=== PATIENT | female | born 1980 | race Caucasian/White ===

== ENCOUNTER 2018-10-29 11:08 | Inpatient (IN) | payer BC, MEDICAID ==
[2018-10-29] VITALS (10 sets, daily range): BP systolic 94–136
[~2018-10-29] VITALS: Ht 157.5 cm; Wt 65.3 kg
[2018-10-29] MEDS ORDERED: NACL 0.9% 1,000 ML IV ONE (11:14)
[2018-10-29] MEDS ORDERED: cefTRIAXone 1 GM IVPB PREMIX 50 ML IV ONE (11:15)
[2018-10-29] MEDS ORDERED: NS 1000 ML IV.SOLN IV ONE (11:15)
[2018-10-29] MEDS ORDERED: IBUPROFEN 800 MG TABLET PO ONE (11:30)
[2018-10-29] MEDS ORDERED: ACETAMINOPHEN 120 MG SUPP.RECT RC ONE (11:30)
[2018-10-29 12:25] LABS: BASOPHILS % (AUTO) 0.1 % (0.0-2.0); EOSINOPHILS % (AUTO) 0.2 % (0.0-4.0); HEMOGLOBIN 10.5 g/dL (12.0-16.0); LYMPHOCYTES % (AUTO) 9.8 % (20.5-51.5); MEAN CORPUSCULAR HEMOGLOBIN 28 pg (27-31); MEAN CORPUSCULAR HGB CONC 33 % (32-36); MEAN CORPUSCULAR VOLUME 85 fL (79.0-98.0); MONOCYTES # (AUTO) 0.6 K/uL (0.0-1.0); MONOCYTES % (AUTO) 5.5 % (1.7-9.3); NEUTROPHILS % (AUTO) 84.4 % (40.0-70.0); PLATELET COUNT (AUTO) 424 K/uL (130-430); RED BLOOD CELL COUNT(AUTO) 3.78 MIL/uL (4.2-6.2); RED CELL DISTRIBUTION WIDTH 15.3 % (9.0-15.0); WHITE BLOOD COUNT (AUTO) 10.7 K/uL (4.8-10.8)
[2018-10-29 12:29] LABS: CALCIUM 9.7 mg/dL (8.4-11.0); CREATININE 0.57 mg/dL (0.55-1.30); POTASSIUM 3.5 mmol/L (3.5-5.1)
[2018-10-29 12:34] LABS: ALBUMIN 2.6 g/dL (3.4-4.8); TOTAL BILIRUBIN 0.3 mg/dL (0.0-1.0)
[2018-10-29 12:38] LABS: PROTHROMBIN TIME 10.7 SECS (9.5-12.5)
[2018-10-29 12:49] LABS: BILIRUBIN,URINE NEGATIVE (NEGATIVE); BLOOD, URINE 3+ (NEGATIVE); CLARITY/URINE HAZY (CLEAR); COLOR,URINE YELLOW (YELLOW); GLUCOSE,URINE NEGATIVE (NEGATIVE); KETONES,URINE NEGATIVE (NEGATIVE); LEUKOCYTE ESTERASE ,URINE 3+ (NEGATIVE); NITRITE, URINE NEGATIVE (NEGATIVE); PROTEIN URINE 2+ (NEGATIVE); UROBILINOGEN,URINE 0.2 (0.2-1.0)
[2018-10-29 12:56] LABS: BACTERIA,URINE MODERATE /HPF (None Seen); MUCUS,URINE 1+ /LPF (None Seen); RBC,URINE 80-100 /HPF (0-3); WBC,URINE 20-50 /HPF (0-3)
[2018-10-29] MEDS ORDERED: LOVI40 SQ (13:33)
[2018-10-29] MEDS ORDERED: LACO200T2 GT (13:33)
[2018-10-29] MEDS ORDERED: CHLO237L3 TP (13:33)
[2018-10-29] MEDS ORDERED: TOPI200T GT (13:33)
[2018-10-29] MEDS ORDERED: LIP20 GT (13:33)
[2018-10-29] MEDS ORDERED: ACET325T53 GT ×2 (13:33)
[2018-10-29] MEDS ORDERED: PEDI1TAB28 GT (13:33)
[2018-10-29] MEDS ORDERED: PROP60CA6 GT (13:33)
[2018-10-29] MEDS ORDERED: [UNRECOGNIZED DRUG - OTHER] GT (13:33)
[2018-10-29] MEDS ORDERED: LANS15CA14 GT (13:33)
[2018-10-29] MEDS ORDERED: LACT10SO7 PO (13:33)
[2018-10-29] MEDS ORDERED: FOLI-43 GT (13:33)
[2018-10-29] MEDS ORDERED: ASCO500T20 GT (13:33)
[2018-10-29] MEDS ORDERED: MODA200T22 GT (13:33)
[2018-10-29] MEDS ORDERED: LEVE500T9 GT (13:33)
[2018-10-29] MEDS ORDERED: LevALBUTEROL HCL 1.25 MG/0.5 ML *CONC.* VIAL.NEB (XOPENEX CONC.) INH PRN (17:00)
[2018-10-29 17:15] LABS: PROTHROMBIN TIME 10.3 SECS (9.5-12.5)
[2018-10-29] MEDS ORDERED: LevALBUTEROL HCL 1.25 MG/0.5 ML *CONC.* VIAL.NEB (XOPENEX CONC.) INH ONE (17:15)
[2018-10-29] MEDS ORDERED: ACETAMINOPHEN 650 MG/20.3 ML UDC GT PRN ×2 (17:15)
[2018-10-29] MEDS ORDERED: CEFEPIME 1 GM in D5W 50 ML IV ONE (18:00)
[2018-10-29] MEDS: LevALBUTEROL HCL 1.25 MG/0.5 ML *CONC.* VIAL.NEB (XOPENEX CONC.) INH SCH (19:50)
[2018-10-29] MEDS ORDERED: NOREPINEPHRINE BITARTRATE 4 MG in D5W 246 ML IV PRN (20:30)
[2018-10-29] MEDS ORDERED: LORazepam 2 MG/ML VIAL IVP PRN (20:30)
[2018-10-29] MEDS: PROPRANOLOL HCL 10 MG TABLET (INDERAL) GT SCH (21:00)
[2018-10-29] MEDS: LACTULOSE 20 GM/30 ML UDC PO SCH (22:18)
[2018-10-29] MEDS: TOPIRAMATE 100 MG TABLET(Topamax) GT SCH (22:19)
[2018-10-29] MEDS: KCL 20 mEq in D5NS 1000 mL 1,000 ML IV SCH ×2 (22:19→23:40)
[2018-10-29] MEDS: ATORVASTATIN 20 MG TABLET GT SCH (22:19)
[2018-10-29] MEDS: LACOSAMIDE 100 MG TABLET GT SCH (22:19)
[2018-10-29] MEDS: CHLORHEXIDINE GLUCONATE 15 ML/DOSE, 480 ML MM SCH (22:20)
[2018-10-29] MEDS: levETIRAcetam 500 MG TABLET GT SCH (22:20)
[2018-10-29] MEDS: ENOXAPARIN SODIUM 60 MG/0.6 ML SYRINGE SQ SCH (22:22)
[2018-10-30] VITALS (24 sets, daily range): BP systolic 98–147
[2018-10-30] MEDS: LevALBUTEROL HCL 1.25 MG/0.5 ML *CONC.* VIAL.NEB (XOPENEX CONC.) INH SCH ×4 (01:09→19:56)
[2018-10-30] MEDS: KCL 20 mEq in D5NS 1000 mL 1,000 ML IV SCH (05:16)
[2018-10-30] MEDS: CEFEPIME 1 GM in D5W 50 ML IV SCH ×2 (05:18→17:50)
[2018-10-30] MEDS: LANSOPRAZOLE 30 MG CAPSULE.DR GT SCH (06:25)
[2018-10-30 06:42] LABS: BASOPHILS % (AUTO) 0.2 % (0.0-2.0); EOSINOPHILS # (AUTO) 0.2 K/uL (0.0-0.4); EOSINOPHILS % (AUTO) 1.9 % (0.0-4.0); HEMOGLOBIN 9.6 g/dL (12.0-16.0); LYMPHOCYTES # (AUTO) 1.8 K/uL (1.0-5.5); LYMPHOCYTES % (AUTO) 15.5 % (20.5-51.5); MEAN CORPUSCULAR HEMOGLOBIN 27 pg (27-31); MEAN CORPUSCULAR HGB CONC 32 % (32-36); MEAN CORPUSCULAR VOLUME 85 fL (79.0-98.0); MONOCYTES # (AUTO) 0.8 K/uL (0.0-1.0); MONOCYTES % (AUTO) 7.1 % (1.7-9.3); NEUTROPHILS % (AUTO) 75.3 % (40.0-70.0); PLATELET COUNT (AUTO) 349 K/uL (130-430); RED BLOOD CELL COUNT(AUTO) 3.52 MIL/uL (4.2-6.2); RED CELL DISTRIBUTION WIDTH 15.3 % (9.0-15.0); WHITE BLOOD COUNT (AUTO) 11.9 K/uL (4.8-10.8)
[2018-10-30 07:01] LABS: CALCIUM 8.9 mg/dL (8.4-11.0); CREATININE 0.37 mg/dL (0.55-1.30)
[2018-10-30] MEDS ORDERED: POTASSIUM CHLORIDE 20 MEQ/PKT PACKET PO ONE (10:30)
[2018-10-30] MEDS: LACTULOSE 20 GM/30 ML UDC PO SCH ×2 (10:32→20:14)
[2018-10-30] MEDS: levETIRAcetam 500 MG TABLET GT SCH ×2 (10:33→20:16)
[2018-10-30] MEDS: PROPRANOLOL HCL 10 MG TABLET (INDERAL) GT SCH ×2 (10:33→20:15)
[2018-10-30] MEDS: FOLIC ACID 1 MG TABLET GT SCH (10:33)
[2018-10-30] MEDS: TOPIRAMATE 100 MG TABLET(Topamax) GT SCH ×2 (10:34→20:14)
[2018-10-30] MEDS: ASCORBIC ACID 500 MG TABLET GT SCH (10:34)
[2018-10-30] MEDS: MODAFINIL 100 MG TABLET (PROVIGIL) GT SCH (10:34)
[2018-10-30] MEDS: LACOSAMIDE 100 MG TABLET GT SCH ×2 (10:34→20:14)
[2018-10-30] MEDS: CHLORHEXIDINE GLUCONATE 15 ML/DOSE, 480 ML MM SCH ×2 (10:37→20:17)
[2018-10-30] MEDS: ENOXAPARIN SODIUM 60 MG/0.6 ML SYRINGE SQ SCH ×2 (10:38→20:19)
[2018-10-30] MEDS: KCL 20 mEq in 0.45% NS 1000 mL 1,000 ML IV SCH ×2 (12:34→20:17)
[2018-10-30] MEDS: metroNIDAZOLE 500 mg/NS 100 ML IV SCH ×2 (12:35→20:16)
[2018-10-30] MEDS: ATORVASTATIN 20 MG TABLET GT SCH (20:16)
[2018-10-31] VITALS (20 sets, daily range): BP systolic 109–149
[2018-10-31] MEDS: LevALBUTEROL HCL 1.25 MG/0.5 ML *CONC.* VIAL.NEB (XOPENEX CONC.) INH SCH ×4 (00:51→19:34)
[2018-10-31] MEDS: CEFEPIME 1 GM in D5W 50 ML IV SCH ×2 (05:05→16:55)
[2018-10-31] MEDS: KCL 20 mEq in 0.45% NS 1000 mL 1,000 ML IV SCH ×2 (06:05→16:56)
[2018-10-31] MEDS: LANSOPRAZOLE 30 MG CAPSULE.DR GT SCH (06:09)
[2018-10-31 06:16] LABS: BASOPHILS % (AUTO) 0.2 % (0.0-2.0); EOSINOPHILS # (AUTO) 0.2 K/uL (0.0-0.4); EOSINOPHILS % (AUTO) 2.3 % (0.0-4.0); HEMATOCRIT 26.4 % (36-48); HEMOGLOBIN 8.6 g/dL (12.0-16.0); LYMPHOCYTES # (AUTO) 2.1 K/uL (1.0-5.5); LYMPHOCYTES % (AUTO) 23.5 % (20.5-51.5); MEAN CORPUSCULAR HEMOGLOBIN 28 pg (27-31); MEAN CORPUSCULAR HGB CONC 32 % (32-36); MEAN CORPUSCULAR VOLUME 85 fL (79.0-98.0); MONOCYTES # (AUTO) 0.6 K/uL (0.0-1.0); MONOCYTES % (AUTO) 6.2 % (1.7-9.3); NEUTROPHILS # (AUTO) 6.1 K/uL (1.8-7.7); NEUTROPHILS % (AUTO) 67.8 % (40.0-70.0); PLATELET COUNT (AUTO) 379 K/uL (130-430); RED BLOOD CELL COUNT(AUTO) 3.11 MIL/uL (4.2-6.2); RED CELL DISTRIBUTION WIDTH 15.4 % (9.0-15.0)
[2018-10-31 06:34] LABS: CALCIUM 8.7 mg/dL (8.4-11.0); CREATININE 0.34 mg/dL (0.55-1.30); POTASSIUM 3.1 mmol/L (3.5-5.1)
[2018-10-31 06:42] LABS: ALBUMIN 2.1 g/dL (3.4-4.8); TOTAL BILIRUBIN 0.1 mg/dL (0.0-1.0)
[2018-10-31] MEDS ORDERED: MULTIVIT-MINERALS/FERROUS GLUC 15 ML UDC GT SCH (09:00)
[2018-10-31] MEDS: LACTULOSE 20 GM/30 ML UDC PO SCH ×2 (09:00→20:36)
[2018-10-31] MEDS: MODAFINIL 100 MG TABLET (PROVIGIL) GT SCH (09:06)
[2018-10-31] MEDS: PROPRANOLOL HCL 10 MG TABLET (INDERAL) GT SCH ×2 (09:07→20:37)
[2018-10-31] MEDS: levETIRAcetam 500 MG TABLET GT SCH ×2 (09:07→20:36)
[2018-10-31] MEDS: LACOSAMIDE 100 MG TABLET GT SCH ×2 (09:07→20:37)
[2018-10-31] MEDS: ASCORBIC ACID 500 MG TABLET GT SCH (09:07)
[2018-10-31] MEDS: FOLIC ACID 1 MG TABLET GT SCH (09:07)
[2018-10-31] MEDS: ENOXAPARIN SODIUM 60 MG/0.6 ML SYRINGE SQ SCH ×2 (09:10→20:38)
[2018-10-31] MEDS: CHLORHEXIDINE GLUCONATE 15 ML/DOSE, 480 ML MM SCH ×2 (09:12→20:35)
[2018-10-31] MEDS: metroNIDAZOLE 500 mg/NS 100 ML IV SCH (09:15)
[2018-10-31] MEDS: TOPIRAMATE 100 MG TABLET(Topamax) GT SCH ×2 (10:35→20:37)
[2018-10-31] MEDS: POTASSIUM CHLORIDE 20 MEQ/PKT PACKET GT SCH ×2 (10:36→13:20)
[2018-10-31] MEDS ORDERED: MULTIVIT-MINERALS/FERROUS GLUC 15 ML UDC GT ONE (10:45)
[2018-10-31] MEDS: MEROPENEM 500 MG in NS 50 ML IV SCH (18:21)
[2018-10-31] MEDS: ATORVASTATIN 20 MG TABLET GT SCH (20:37)
[2018-11-01] MEDS: LevALBUTEROL HCL 1.25 MG/0.5 ML *CONC.* VIAL.NEB (XOPENEX CONC.) INH SCH ×4 (00:26→19:20)
[2018-11-01 00:31] VITALS: BP_SYST 120
[2018-11-01] MEDS: MEROPENEM 500 MG in NS 50 ML IV SCH ×3 (01:15→17:09)
[2018-11-01] MEDS: LANSOPRAZOLE 30 MG CAPSULE.DR GT SCH (06:06)
[2018-11-01 06:32] LABS: BASOPHILS % (AUTO) 0.2 % (0.0-2.0); EOSINOPHILS # (AUTO) 0.2 K/uL (0.0-0.4); HEMATOCRIT 31.1 % (36-48); HEMOGLOBIN 10.1 g/dL (12.0-16.0); LYMPHOCYTES # (AUTO) 2.4 K/uL (1.0-5.5); LYMPHOCYTES % (AUTO) 36.1 % (20.5-51.5); MEAN CORPUSCULAR HEMOGLOBIN 27 pg (27-31); MEAN CORPUSCULAR HGB CONC 32 % (32-36); MEAN CORPUSCULAR VOLUME 85 fL (79.0-98.0); MONOCYTES # (AUTO) 0.4 K/uL (0.0-1.0); MONOCYTES % (AUTO) 6.4 % (1.7-9.3); NEUTROPHILS # (AUTO) 3.6 K/uL (1.8-7.7); NEUTROPHILS % (AUTO) 54.3 % (40.0-70.0); PLATELET COUNT (AUTO) 424 K/uL (130-430); RED BLOOD CELL COUNT(AUTO) 3.68 MIL/uL (4.2-6.2); RED CELL DISTRIBUTION WIDTH 15.2 % (9.0-15.0); WHITE BLOOD COUNT (AUTO) 6.6 K/uL (4.8-10.8)
[2018-11-01 06:50] LABS: CALCIUM 9.6 mg/dL (8.4-11.0); CREATININE 0.36 mg/dL (0.55-1.30); POTASSIUM 3.8 mmol/L (3.5-5.1)
[2018-11-01 07:37] LABS: TOTAL IRON BIND. CAPACITY 270 ug/dL (250-450)
[2018-11-01 07:45] VITALS: BP_SYST 120
[2018-11-01] MEDS: ENOXAPARIN SODIUM 60 MG/0.6 ML SYRINGE SQ SCH ×2 (08:39→20:25)
[2018-11-01] MEDS: LACTULOSE 20 GM/30 ML UDC PO SCH ×2 (08:40→20:24)
[2018-11-01] MEDS: MULTIVIT-MINERALS/FERROUS GLUC 15 ML UDC GT SCH (08:40)
[2018-11-01] MEDS: levETIRAcetam 500 MG TABLET GT SCH ×2 (08:40→20:22)
[2018-11-01] MEDS: PROPRANOLOL HCL 10 MG TABLET (INDERAL) GT SCH ×2 (08:40→20:23)
[2018-11-01] MEDS: ASCORBIC ACID 500 MG TABLET GT SCH (08:41)
[2018-11-01] MEDS: LACOSAMIDE 100 MG TABLET GT SCH ×2 (08:41→20:22)
[2018-11-01] MEDS: FOLIC ACID 1 MG TABLET GT SCH (08:41)
[2018-11-01] MEDS: TOPIRAMATE 100 MG TABLET(Topamax) GT SCH ×2 (08:41→20:23)
[2018-11-01] MEDS: MODAFINIL 100 MG TABLET (PROVIGIL) GT SCH (08:41)
[2018-11-01] MEDS: KCL 20 mEq in 0.45% NS 1000 mL 1,000 ML IV SCH (08:42)
[2018-11-01] MEDS: CHLORHEXIDINE GLUCONATE 15 ML/DOSE, 480 ML MM SCH ×2 (08:55→20:22)
[2018-11-01] MEDS ORDERED: NACL 0.9% 1,000 ML IV SCH (09:15)
[2018-11-01 13:43] VITALS: BP_SYST 101
[2018-11-01 16:37] VITALS: BP_SYST 98
[2018-11-01 20:00] VITALS: BP_SYST 127
[2018-11-01] MEDS: ATORVASTATIN 20 MG TABLET GT SCH (20:23)
[2018-11-02] VITALS: BP_SYST 128
[2018-11-02] MEDS: LevALBUTEROL HCL 1.25 MG/0.5 ML *CONC.* VIAL.NEB (XOPENEX CONC.) INH SCH ×4 (00:40→19:56)
[2018-11-02] MEDS: MEROPENEM 500 MG in NS 50 ML IV SCH ×3 (01:33→18:09)
[2018-11-02] MEDS: LANSOPRAZOLE 30 MG CAPSULE.DR GT SCH (06:05)
[2018-11-02 06:55] LABS: POTASSIUM 3.6 mmol/L (3.5-5.1)
[2018-11-02 06:56] LABS: CALCIUM 9.6 mg/dL (8.4-11.0); CREATININE 0.25 mg/dL (0.55-1.30)
[2018-11-02 07:01] LABS: BASOPHILS % (AUTO) 0.3 % (0.0-2.0); EOSINOPHILS # (AUTO) 0.2 K/uL (0.0-0.4); EOSINOPHILS % (AUTO) 2.5 % (0.0-4.0); HEMATOCRIT 30.5 % (36-48); HEMOGLOBIN 10.1 g/dL (12.0-16.0); LYMPHOCYTES # (AUTO) 2.5 K/uL (1.0-5.5); LYMPHOCYTES % (AUTO) 33.8 % (20.5-51.5); MEAN CORPUSCULAR HEMOGLOBIN 28 pg (27-31); MEAN CORPUSCULAR HGB CONC 33 % (32-36); MEAN CORPUSCULAR VOLUME 84 fL (79.0-98.0); MONOCYTES # (AUTO) 0.5 K/uL (0.0-1.0); MONOCYTES % (AUTO) 6.3 % (1.7-9.3); NEUTROPHILS # (AUTO) 4.1 K/uL (1.8-7.7); NEUTROPHILS % (AUTO) 57.1 % (40.0-70.0); PLATELET COUNT (AUTO) 530 K/uL (130-430); RED BLOOD CELL COUNT(AUTO) 3.64 MIL/uL (4.2-6.2); RED CELL DISTRIBUTION WIDTH 15.4 % (9.0-15.0); WHITE BLOOD COUNT (AUTO) 7.2 K/uL (4.8-10.8)
[2018-11-02 08:00] VITALS: BP_SYST 140
[2018-11-02] MEDS: LACTULOSE 20 GM/30 ML UDC PO SCH ×2 (09:00→20:43)
[2018-11-02] MEDS ORDERED: POTASSIUM CHLORIDE 20 MEQ/PKT PACKET GT ONE (09:30)
[2018-11-02] MEDS: TOPIRAMATE 100 MG TABLET(Topamax) GT SCH ×2 (10:00→20:43)
[2018-11-02] MEDS: LACOSAMIDE 100 MG TABLET GT SCH ×2 (10:00→20:43)
[2018-11-02] MEDS: ASCORBIC ACID 500 MG TABLET GT SCH (10:01)
[2018-11-02] MEDS: FOLIC ACID 1 MG TABLET GT SCH (10:01)
[2018-11-02] MEDS: PROPRANOLOL HCL 10 MG TABLET (INDERAL) GT SCH ×2 (10:01→20:43)
[2018-11-02] MEDS: levETIRAcetam 500 MG TABLET GT SCH ×2 (10:01→20:43)
[2018-11-02] MEDS: CHLORHEXIDINE GLUCONATE 15 ML/DOSE, 480 ML MM SCH ×2 (10:01→20:46)
[2018-11-02] MEDS: MODAFINIL 100 MG TABLET (PROVIGIL) GT SCH (10:01)
[2018-11-02] MEDS: MULTIVIT-MINERALS/FERROUS GLUC 15 ML UDC GT SCH (10:01)
[2018-11-02] MEDS: ENOXAPARIN SODIUM 60 MG/0.6 ML SYRINGE SQ SCH ×2 (10:03→20:45)
[2018-11-02 12:44] VITALS: BP_SYST 115
[2018-11-02 17:32] VITALS: BP_SYST 111
[2018-11-02 20:31] VITALS: BP_SYST 117
[2018-11-02] MEDS: ATORVASTATIN 20 MG TABLET GT SCH (20:42)
[2018-11-03 00:45] VITALS: BP_SYST 99
[2018-11-03] MEDS: MEROPENEM 500 MG in NS 50 ML IV SCH ×3 (01:03→19:03)
[2018-11-03] MEDS: LevALBUTEROL HCL 1.25 MG/0.5 ML *CONC.* VIAL.NEB (XOPENEX CONC.) INH SCH ×3 (01:07→13:21)
[2018-11-03] MEDS: LANSOPRAZOLE 30 MG CAPSULE.DR GT SCH (06:05)
[2018-11-03] MEDS: LACTULOSE 20 GM/30 ML UDC PO SCH (09:00)
[2018-11-03] MEDS: ENOXAPARIN SODIUM 60 MG/0.6 ML SYRINGE SQ SCH (10:04)
[2018-11-03] MEDS: FOLIC ACID 1 MG TABLET GT SCH (10:04)
[2018-11-03] MEDS: levETIRAcetam 500 MG TABLET GT SCH (10:04)
[2018-11-03] MEDS: ASCORBIC ACID 500 MG TABLET GT SCH (10:04)
[2018-11-03] MEDS: MODAFINIL 100 MG TABLET (PROVIGIL) GT SCH (10:04)
[2018-11-03] MEDS: LACOSAMIDE 100 MG TABLET GT SCH (10:04)
[2018-11-03] MEDS: TOPIRAMATE 100 MG TABLET(Topamax) GT SCH (10:05)
[2018-11-03] MEDS: CHLORHEXIDINE GLUCONATE 15 ML/DOSE, 480 ML MM SCH (10:05)
[2018-11-03] MEDS: MULTIVIT-MINERALS/FERROUS GLUC 15 ML UDC GT SCH (10:06)
[2018-11-03 13:04] VITALS: BP_SYST 99
[2018-11-03 16:09] VITALS: BP_SYST 100; BP_SYST 128
[2018-11-03 18:16] VITALS: BP_SYST 153
[2018-11-04] MEDS ORDERED: MEROPENEM 500 MG in NS 50 ML IV SCH (02:00)
== END 2018-11-03 19:00 | DRG 871 ==
LOC: SED 11:08 → SIC 16:24 → STU 10-31 18:44
PROVIDERS: ADMIT Family Medicine; ATTEND Family Medicine
PROC: 02HV33Z Insertion of Infusion Device into Superior Vena Cava, Percutaneous Approach (ICD-10-PCS; principal; 2018-10-29)
PROC: B548ZZA Ultrasonography of Superior Vena Cava, Guidance (ICD-10-PCS; 2018-10-29)
DX: A41.9 Sepsis, unspecified organism (principal); R65.21 Severe sepsis with septic shock; E43 Unspecified severe protein-calorie malnutrition; J15.1 Pneumonia due to Pseudomonas; G82.50 Quadriplegia, unspecified; I21.9 Acute myocardial infarction, unspecified; J96.10 Chronic respiratory failure, unspecified whether with hypoxia or hypercapnia; N30.90 Cystitis, unspecified without hematuria; D64.9 Anemia, unspecified; B96.4 Proteus (mirabilis) (morganii) as the cause of diseases classified elsewhere; F41.9 Anxiety disorder, unspecified; E78.5 Hyperlipidemia, unspecified; G83.9 Paralytic syndrome, unspecified; E86.0 Dehydration; G40.909 Epilepsy, unspecified, not intractable, without status epilepticus; I10 Essential (primary) hypertension; Y95 Nosocomial condition; Z87.820 Personal history of traumatic brain injury; Z93.0 Tracheostomy status; Z93.1 Gastrostomy status; Z68.26 Body mass index [BMI] 26.0-26.9, adult
CPT/HCPCS: 36415; 36600; 71045; 80048; 80053; 81000-TC; 82150-TC; 82550-TC; 82803-TC; 83540-TC; 83550-TC; 83605; 83690-TC; 84484; 85025; 85610-TC; 85730-TC; 86710; 87040-TC; 87070-TC; 87081; 87086; 87186-TC; 87205-TC; 87230-TC; 93005; 93306; 93970; 94640; 94760; 96361; 96365; 99285; C1751; G0378; J0692; J0696; J1650; J2185; J3480; J3490; J7030; J7060; J7612